=== PATIENT | male | born 1965 | race Caucasian/White ===

== ENCOUNTER 2021-02-22 21:36 | Emergency (ER) | payer BC ==
[2021-02-22] MEDS ORDERED: Metoprolol Tartrate 50 MG Tab PO ONE (21:51)
[2021-02-22] MEDS ORDERED: Labetalol 20 MG/4 ML Syringe IVPUSH ONE (22:12)
[2021-02-22] MEDS: Sodium Chloride 0.9% 10 ML Syringe FLUSH PRN ×4 (22:25→23:45)
[2021-02-22] MEDS ORDERED: Metoprolol Tartrate 50 MG Tab PO STA (22:38)
[2021-02-22] MEDS ORDERED: Labetalol 20 MG/4 ML Syringe IVPUSH STA (22:38)
[2021-02-22] MEDS ORDERED: Diltiazem 25 MG/5 ML SDV IVPUSH ONE (23:11)
--- NOTE | 2021-02-22 23:14 | EDM.PDOC ---
ED HPI GENERAL MEDICAL PROBLEM - General Chief Complaint: General Stated Complaint: RAPID HEART AND HIGH BP Time Seen by Provider: 02/22/21 21:45 Source of Information: Reports: Patient, Family History Limitations: Reports: No Limitations - History of Present Illness INITIAL COMMENTS - FREE TEXT/NARRATIVE: Patient presented to the ED because of palpitations and elevated BP which started later this afternoon. there is no chest pain, dyspnea, N/V or diaphories. Denies having any dizziness or lightheadedness. He is taking HCTZ,Cozaar and metoprolol foe his HTN. - Related Data Allergies Allergy/AdvReac Type Severity Reaction Status Date / Time No Known Allergies Allergy Verified 02/22/21 23:06 Home Meds: Home Meds Losartan [Cozaar] 100 mg PO DAILY 02/22/21 [History] SitaGLIPtin [Januvia] 100 mg PO DAILY 02/22/21 [History] amLODIPine Besylate [Norvasc] 10 mg PO DAILY 02/22/21 [History] hydroCHLOROthiazide [Hydrochlorothiazide] 12.5 mg PO DAILY 02/22/21 [History] ED ROS GENERAL - Review of Systems Review Of Systems: See Below Constitutional: Reports: No Symptoms HEENT: Reports: No Symptoms Respiratory: Reports: No Symptoms Cardiovascular: Reports: Palpitations Endocrine: Reports: No Symptoms GI/Abdominal: Reports: No Symptoms : Reports: No Symptoms Musculoskeletal: Reports: No Symptoms Skin: Reports: No Symptoms Neurological: Reports: No Symptoms Psychiatric: Reports: No Symptoms Hematologic/Lymphatic: Reports: No Symptoms ED EXAM, GENERAL - Physical Exam Exam: See Below Exam Limited By: No Limitations General Appearance: Alert, No Apparent Distress Eye Exam: Bilateral Eye: PERRL Ears: Normal External Exam, Normal Canal Nose: Normal Inspection, Normal Mucosa, No Blood Throat/Mouth: Normal Inspection, Normal Lips, Normal Teeth, Normal Gums Head: Atraumatic, Normocephalic Neck: Normal Inspection, Supple, Non-Tender, Full Range of Motion Respiratory/Chest: No Respiratory Distress, Lungs Clear, Normal Breath Sounds, No Accessory Muscle Use, Chest Non-Tender Cardiovascular: Normal Peripheral Pulses, No Edema, No Gallop, No JVD, No Murmur, Tachycardia GI/Abdominal: Normal Bowel Sounds, Soft, Non-Tender, No Organomegaly Back Exam: Normal Inspection, Full Range of Motion Extremities: Normal Inspection, Normal Range of Motion, Non-Tender, No Pedal Edema, Normal Capillary Refill Neurological: Alert, Oriented, CN II-XII Intact, Normal Cognition Psychiatric: Normal Affect, Normal Mood #2 Interpretation EKG Date: 02/22/21 Time: 21:37 Rhythm: Other (Sinus Tach) Rate (Beats/Min): 122 [place]: Normal P-Wave: Present QRS: RBBB ST-T: Normal QT: Normal [place]/PQ Interval: 89 Comparison: NA - No Prior EKG EKG Interpretation Comments: Sinus Tach RBBB Course - Vital Signs Text/Narrative:: Lab/EKG result was reviewed and discussed with patient and his family Metoprolol tartrate 50 mg PO x2 Cardizem 25 mg IV x1 Labetalol 20 mg IV x 2 doses Last Recorded V/S: Last Vital Signs Temp 36.9 C 02/22/21 21:40 Pulse 106 H 02/22/21 23:00 Resp BP 160/107 H 02/22/21 23:00 Pulse Ox - Orders/Labs/Meds Orders: Active Orders 24 hr Category Date Time Status Saline Lock Insert [OM.PC] Routine Oth 02/22/21 22:26 Ordered EKG 12 Lead [EK] Routine Ther 02/22/21 21:37 Ordered Labs: Laboratory Tests 02/22/21 02/22/21 02/22/21 Range/Units 22:35 22:35 22:35 WBC 9.0 (3.2-10.1) x10-3/uL RBC 5.00 (3.90-5.90) x10(6)uL Hgb 14.7 (12.9-17.7) g/dL Hct 43.3 (38.3-50.1) % MCV 86.7 (80.8-98.7) fL MCH 29.4 (27.0-33.3) pg MCHC 34.0 (28.7-35.3) g/dL RDW 13.1 (12.4-15.0) % Plt Count 274 (117-477) x10(3)uL MPV 8.0 (6.7-11.0) fL Neut % (Auto) 69.6 (40.3-71.8) % Lymph % (Auto) 18.5 (15.8-45.3) % [place] % (Auto) 8.4 (5.5-15.2) % Eos % (Auto) 2.7 (0.1-6.8) % Baso % (Auto) 0.8 (0.3-3.8) % Neut # (Auto) 6.2 (1.7-6.9) x10-3/uL Lymph # (Auto) 1.7 (0.5-4.5) x10-3/uL [place] # (Auto) 0.8 (0.0-1.2) x10-3/uL Eos # (Auto) 0.2 (0.0-0.6) x10-3/uL Baso # (Auto) 0.1 (0.0-0.3) x10-3/uL Sodium 140 (135-145) mmol/L Potassium 3.9 (3.5-5.3) mmol/L Chloride 101 (100-110) mmol/L Carbon Dioxide 27 (21-32) mmol/L BUN 19 H (7-18) mg/dL Creatinine 1.2 (0.70-1.30) mg/dL Est Cr Clr Drug Dosing TNP Estimated GFR (MDRD) > 60 (>60) BUN/Creatinine Ratio 15.8 (9-20) Glucose 264 H (80-116) mg/dL Calcium 8.9 (8.6-10.2) mg/dL Total Bilirubin 0.8 (0.1-1.3) mg/dL AST 53 H (5-25) IU/L ALT 146 H (12-36) U/L Alkaline Phosphatase 49 L (56-112) IU/L Troponin I 6.8 (4.0-60.3) pg/mL Total Protein 7.6 (6.0-8.0) g/dL Albumin 4.0 (3.5-5.2) g/dL Globulin 3.6 g/dL Albumin/Globulin Ratio 1.1 Meds: Medications Discontinued Medications Generic Name Dose Route Start Last Admin Trade Name Freq PRN Reason Stop Dose Admin Diltiazem HCl 25 mg 02/22/21 23:11 02/22/21 23:15 Diltiazem 25 Mg/5 Ml Sdv IVPUSH 02/22/21 23:12 25 mg ONETIME ONE Administration Labetalol HCl 20 mg 02/22/21 22:12 02/22/21 22:15 Labetalol 20 Mg/4 Ml Syringe IVPUSH 02/22/21 22:13 20 mg ONETIME ONE Administration Protocol Labetalol HCl 20 mg 02/22/21 22:38 02/22/21 22:43 Labetalol 20 Mg/4 Ml Syringe IVPUSH 02/22/21 22:39 20 mg NOW STA Administration Protocol Metoprolol Tartrate 50 mg 02/22/21 21:51 02/22/21 22:10 Metoprolol Tartrate 50 Mg Tab PO 02/22/21 21:52 50 mg ONETIME ONE Administration Metoprolol Tartrate 50 mg 02/22/21 22:38 02/22/21 23:00 Metoprolol Tartrate 50 Mg Tab PO 02/22/21 22:39 50 mg NOW STA Administration Sodium Chloride 10 ml 02/22/21 22:26 02/22/21 23:45 Sodium Chloride 0.9% 10 Ml Syringe FLUSH 10 ml ASDIRECTED PRN Administration Keep Vein Open Departure - Departure Time of Disposition: 00:00 Disposition: Home, Self-Care 01 Condition: Good Clinical Impression: Palpitations, Hypertension, Hypertensive crisis - Discharge Information Instructions: Hypertension, Adult, [id number], Palpitations, [id number] Referrals: PCP,None [Primary Care Provider] - Forms: ED Department Discharge Additional Instructions: please read discharge instructions on palpitations and high blood pressure low salt, low fat diet exercise weight loss continue your medications for high blood pressure follow up if your palpitations is getting worse or return to the ED Sepsis Event Note (ED) - Focused Exam Vital Signs: Vital Signs Temp Pulse BP 02/22/21 23:00 106 H 160/107 H 02/22/21 22:10 122 H 191/123 H 02/22/21 21:40 36.9 C - My Orders Last 24 Hours: My Active Orders 02/22/21 21:37 EKG 12 Lead [EK] Routine 02/22/21 22:26 Saline Lock Insert [OM.PC] Routine - Assessment/Plan Last 24 Hours: My Active Orders 02/22/21 21:37 EKG 12 Lead [EK] Routine 02/22/21 22:26 Saline Lock Insert [OM.PC] Routine
== END 2021-02-23 00:10 | disposition home or self-care (01) ==
LOC: FB.ED 21:36
DX: I16.9 Hypertensive crisis, unspecified (principal); R00.2 Palpitations; I45.10 Unspecified right bundle-branch block; Z79.899 Other long term (current) drug therapy
CPT/HCPCS: 36415; 80053; 84484; 85025; 93005; 96374; 96375; 99285; A9270; J3490

== ENCOUNTER 2021-06-27 20:43 | Emergency (ER) | payer BC ==
--- NOTE | 2021-06-27 21:49 | EDM.PDOC ---
ED HPI GENERAL MEDICAL PROBLEM - General Chief Complaint: Chest Pain Stated Complaint: HIGH B/P Time Seen by Provider: 06/27/21 21:46 Source of Information: Reports: Patient History Limitations: Reports: No Limitations - History of Present Illness INITIAL COMMENTS - FREE TEXT/NARRATIVE: Nahid complains of high BP. At home it was 180 systolic,and associated with palpitations,mild chest pain and tingling of the feet. He was seen in Jan with the same symptoms. He also has DM2. - Related Data Allergies Allergy/AdvReac Type Severity Reaction Status Date / Time No Known Allergies Allergy Verified 02/22/21 23:06 Home Meds: Home Meds Losartan [Cozaar] 100 mg PO DAILY 02/22/21 [History] SitaGLIPtin [Januvia] 100 mg PO DAILY 02/22/21 [History] amLODIPine Besylate [Norvasc] 10 mg PO DAILY 02/22/21 [History] hydroCHLOROthiazide [Hydrochlorothiazide] 12.5 mg PO DAILY 02/22/21 [History] Past Medical History Cardiovascular History: Reports: Hypertension Endocrine/Metabolic History: Reports: Other (See Below) Other Endocrine/Metabolic History: Adult onset diabetes. ED ROS GENERAL - Review of Systems Review Of Systems: Comprehensive ROS is negative, except as noted in HPI. ED EXAM, GENERAL - Physical Exam Exam: See Below Exam Limited By: No Limitations General Appearance: Alert, WD/WN, No Apparent Distress Ears: Normal External Exam Nose: Normal Inspection Throat/Mouth: Normal Inspection Head: Atraumatic Neck: Normal Inspection Respiratory/Chest: No Respiratory Distress, Lungs Clear Cardiovascular: Normal Peripheral Pulses, Regular Rate, Rhythm GI/Abdominal: Normal Bowel Sounds, Soft, Non-Tender #1 Interpretation EKG Date: 06/27/21 Rhythm: NSR [place]: Normal P-Wave: Present QRS: RBBB Course - Orders/Labs/Meds Orders: Active Orders 24 hr Category Date Time Status EKG Documentation Completion [RC] ASDIRECTED Care 06/27/21 20:55 Active EKG 12 Lead [EK] Routine Ther 06/27/21 20:55 Ordered Labs: Laboratory Tests 06/27/21 06/27/21 06/27/21 Range/Units 21:10 21:10 21:10 WBC 9.5 (3.2-10.1) x10-3/uL RBC 4.97 (3.90-5.90) x10(6)uL Hgb 14.8 (12.9-17.7) g/dL Hct 43.4 (38.3-50.1) % MCV 87.3 (80.8-98.7) fL MCH 29.8 (27.0-33.3) pg MCHC 34.2 (28.7-35.3) g/dL RDW 13.0 (12.4-15.0) % Plt Count 276 (117-477) x10(3)uL MPV 8.1 (6.7-11.0) fL Neut % (Auto) 64.0 (40.3-71.8) % Lymph % (Auto) 22.7 (15.8-45.3) % [place] % (Auto) 9.6 (5.5-15.2) % Eos % (Auto) 2.7 (0.1-6.8) % Baso % (Auto) 1.0 (0.3-3.8) % Neut # (Auto) 6.1 (1.7-6.9) x10-3/uL Lymph # (Auto) 2.2 (0.5-4.5) x10-3/uL [place] # (Auto) 0.9 (0.0-1.2) x10-3/uL Eos # (Auto) 0.3 (0.0-0.6) x10-3/uL Baso # (Auto) 0.1 (0.0-0.3) x10-3/uL Sodium 139 (135-145) mmol/L Potassium 3.9 (3.5-5.3) mmol/L Chloride 101 (100-110) mmol/L Carbon Dioxide 29 (21-32) mmol/L BUN 16 (7-18) mg/dL Creatinine 0.9 (0.70-1.30) mg/dL Est Cr Clr Drug Dosing TNP Estimated GFR (MDRD) > 60 (>60) BUN/Creatinine Ratio 17.8 (9-20) Glucose 107 D (80-116) mg/dL Calcium 9.1 (8.6-10.2) mg/dL Troponin I 4.2 (4.0-60.3) pg/mL Departure - Departure Time of Disposition: 21:48 Disposition: Home, Self-Care 01 Clinical Impression: Hypertension Instructions: Hypertension, Adult, [id number] Referrals: Marsha Viveros PA [Primary Care Provider] - Forms: ED Department Discharge Additional Instructions: Take 50mg of metoprolol, keep your appointment. - Problem List & Annotations (1) Hypertension SNOMED Code(s): 16899742 Code(s): I10 - ESSENTIAL (PRIMARY) HYPERTENSION Status: Acute Current Visit: Yes Qualifiers: Hypertension type: primary hypertension Qualified Code(s): I10 - Essential (primary) hypertension - Problem List Review Problem List Initiated/Reviewed/Updated: Yes - My Orders Last 24 Hours: My Active Orders 06/27/21 20:55 EKG Documentation Completion [RC] ASDIRECTED EKG 12 Lead [EK] Routine - Assessment/Plan Last 24 Hours: My Active Orders 06/27/21 20:55 EKG Documentation Completion [RC] ASDIRECTED EKG 12 Lead [EK] Routine Plan: Discussed HTN. Increase BB to 50 mg daily. has ppt with Marsha Viveros.Return with any worsening symptoms
== END 2021-06-27 21:53 | disposition home or self-care (01) ==
LOC: FB.ED 20:43
DX: I10 Essential (primary) hypertension (principal); Z79.899 Other long term (current) drug therapy
CPT/HCPCS: 36415; 80048; 84484; 85025; 93005; 99285-25

== ENCOUNTER 2021-10-01 13:09 | Emergency (ER) | payer BC ==
[2021-10-01] MEDS ORDERED: Sodium Chloride 0.9% 10 ML Syringe FLUSH PRN (13:24)
[2021-10-01] MEDS ORDERED: Labetalol 20 MG/4 ML Syringe IVPUSH ONE (13:25)
== END 2021-10-01 14:45 | disposition home or self-care (01) ==
LOC: FB.ED 13:09
DX: R00.2 Palpitations (principal); R00.0 Tachycardia, unspecified; I10 Essential (primary) hypertension; E11.9 Type 2 diabetes mellitus without complications; Z79.899 Other long term (current) drug therapy
CPT/HCPCS: 80053; 84443; 84484; 85025; 93005; 93010; 99283; 99285-25; J3490